=== PATIENT | male | born 1945 | race Caucasian/White ===

== ENCOUNTER 2018-07-08 09:55 | Day surgery (SDC) | payer MEDICARE ==
[2018-07-07 13:50] LABS: BASOPHILS % (AUTO) 0.7 % (0-1); EOSINOPHILS # (AUTO) 0.1 X10'3 (0-0.9); EOSINOPHILS % (AUTO) 1.5 % (0-6); HEMATOCRIT 44.5 % (42.0-52.0); HEMOGLOBIN 15.1 g/dl (14.0-17.9); LYMPHOCYTES # (AUTO) 1.6 X10'3 (1.1-4.8); LYMPHOCYTES % (AUTO) 29.2 % (21-51); MEAN CORPUSCULAR HEMOGLOBIN 32.6 PG (27.0-31.0); MEAN CORPUSCULAR HGB CONC 33.9 g/dL (33.0-36.5); MEAN CORPUSCULAR VOLUME 96.2 FL (78-98); MEAN PLATELET VOLUME 8.2 FL (7.4-10.4); MONOCYTES # (AUTO) 0.6 X10'3 (0-0.9); MONOCYTES % (AUTO) 10.9 % (2-12); NEUTROPHILS # (AUTO) 3.3 X10'3 (1.8-7.7); NEUTROPHILS % (AUTO) 57.7 % (42-75); PLATELET COUNT 180 X10'3 (140-440); RED BLOOD COUNT 4.63 X10'6 (4.70-6.10); RED CELL DISTRIBUTION WIDTH 13.3 % (11.5-14.5); WHITE BLOOD COUNT 5.7 X10'3 (4.5-11.0)
[2018-07-07 13:57] LABS: ALBUMIN 3.7 G/DL (3.4-5.0); ANION GAP 8 (8-16); BLOOD UREA NITROGEN 17 MG/DL (7-18); BUN/CREATININE RATIO 15.5 (5.4-32.0); CALCIUM 8.9 MG/DL (8.5-10.1); CHLORIDE 106 MMOL/L (99-107); GLUCOSE 89 MG/DL (70-104); POTASSIUM 4.3 MMOL/L (3.5-5.1); SODIUM 141 MMOL/L (135-145); TOTAL CARBON DIOXIDE 26.9 MMOL/L (24-32); eGFR 66 ML/MIN
[2018-07-07 14:02] LABS: INR 1.2 INR; PROTHROMBIN TIME 12.1 SECONDS (9.0-12.0)
[~2018-07-08] VITALS: Ht 180.3 cm; Wt 108.0 kg
[2018-07-08] VITALS (15 sets, daily range): BP systolic 114–136; BP diastolic 68–82
[~2018-07-08 09:55] MED LIST: AMLO5TAB4 PO; APIX5TAB3 PO; ASPI-611 PO; ATOR10TA PO; CHOL2000 PO; FLAX100019 PO; MULT-1085 PO; OMEG1CAP13 PO; SOTA80TA73 PO; TERA2CAP4 PO
[2018-07-08] MEDS ORDERED: diphenhydrAMINE 25mg capsule PO ONE (10:10)
[2018-07-08] MEDS ORDERED: MIDAZolam 5mg/ml 2ml vial IV ONE (10:10)
[2018-07-08] MEDS ORDERED: normal saline 1000ml 1,000 ML IV SCH (10:10)
[2018-07-08] MEDS ORDERED: LORazepam 0.5 MG tablet PO ONE (10:10)
[2018-07-08] MEDS ORDERED: morphine 10mg/ml inj. IV ONE (10:10)
[2018-07-08] MEDS ORDERED: SOTA80TA73 PO (10:26)
[2018-07-08] MEDS ORDERED: AMLO5TAB4 PO (10:26)
[2018-07-08] MEDS ORDERED: DABI150C PO (10:29)
== END 2018-07-08 13:05 | disposition home or self-care (01) ==
LOC: SSTAY O 09:55 → EDSTATUS 12:30 → SSTAY O 13:05
PROVIDERS: ATTEND Internal Medicine Cardiovascular Disease
DX: I48.91 Unspecified atrial fibrillation (principal)
CPT/HCPCS: 36415; 80048; 85025; 85610; 93005; 93312; 93325; J2250; J2270; J7030

== ENCOUNTER 2023-12-14 18:02 | Inpatient (IN) | payer MEDICARE ==
[~2023-12-14] VITALS: Ht 177.8 cm; Wt 95.8 kg
[~2023-12-14 18:02] MED LIST changes: -APIX5TAB3 PO; -ASPI-611 PO; -ATOR10TA PO; +DABI150C PO; +OMEG-5 PO; -OMEG1CAP13 PO
[2023-12-14 18:13] VITALS: BP 126/73; PULSE 80; RESP 18; TEMP 97.8; O2SAT 99
[2023-12-14] MEDS ORDERED: RIVA20TA PO ×2 (19:19→21:51)
[2023-12-14] MEDS ORDERED: MAGN250T11 PO ×2 (19:19→22:08)
[2023-12-14] MEDS ORDERED: POTA99CA PO (19:19)
[2023-12-14] MEDS ORDERED: LOVA40TA2 PO (19:19)
[2023-12-14] MEDS ORDERED: FURO-150 PO ×3 (19:19→22:04)
[2023-12-14] MEDS: pneumococcal 23-VAL P-sac vacc 25 mcg/0.5ml vial IMVAC ONE (20:00)
[2023-12-14] MEDS ORDERED: magnesium Cl slow-release 64mg tablet PO PRN (21:50)
[2023-12-14] MEDS ORDERED: acetaminophen 325mg tablet PO PRN (21:50)
[2023-12-14] MEDS ORDERED: mag hydrox/Alum hydrox/simeth 30ml oral suspension PO PRN (21:50)
[2023-12-14] MEDS ORDERED: potassium Cl 20 mEq SR tablet PO PRN ×2 (21:50)
[2023-12-14] MEDS ORDERED: potassium Cl 40MEQ/1/2NS 520ml 520 ML IV PRN (21:50)
[2023-12-14] MEDS ORDERED: magnesium sulf-water 2g/50mL 50 ML IV PRN (21:50)
[2023-12-14] MEDS ORDERED: magnesium sulf-water 4G/100mL 100 ML IV PRN (21:50)
[2023-12-14] MEDS ORDERED: ondansetron/PF 4mg/2ml inj IV PRN (21:50)
[2023-12-14] MEDS ORDERED: POTA20PA40 PO (21:51)
[2023-12-14] MEDS ORDERED: LOVA20TA2 PO (21:51)
[2023-12-14] MEDS ORDERED: MAGN250C (21:51)
[2023-12-14 22:00] VITALS: BP 108/62; PULSE 76; RESP 16; TEMP 97.9; O2SAT 98
[2023-12-14] MEDS ORDERED: LISI20TA28 PO (22:24)
[2023-12-14] MEDS: furosemide 40mg/4ml inj IV SCH (22:48)
[2023-12-14 23:27] LABS: APTT 32 SECONDS (22-32); INR 1.5 INR; PROTHROMBIN TIME 15.5 SECONDS (9.0-12.0)
[2023-12-14 23:37] LABS: PRO BRAIN NATRIURETIC PEPTIDE 3918 PG/ML (0-450)
[2023-12-15] VITALS (8 sets, daily range): BP systolic 95–117; BP diastolic 57–69; PULSE 73–89; RESP 12–17; TEMP 97.7–99.3; O2SAT 95–98
[2023-12-15 02:34] LABS: BILIRUBIN,URINE NEGATIVE (Neg); CLARITY,URINE CLEAR (Clear); COLOR,URINE STRAW (Yellow); GLUCOSE, URINE NEGATIVE (Neg); KETONES,URINE NEGATIVE (Neg); LEUKOCYTE ESTERASE ,URINE NEGATIVE (Neg); NITRITES, URINE NEGATIVE (Neg); OCCULT BLOOD,URINE NEGATIVE (Neg); PROTEIN,URINE NEGATIVE (Neg); UROBILINOGEN,URINE 0.2 E.U/dL (0.2-1.0)
[2023-12-15 02:36] LABS: UA COLLECTION TYPE NON-SPECIFIED
[2023-12-15 06:29] LABS: BASOPHILS % (AUTO) 0.7 % (0-1); EOSINOPHILS # (AUTO) 0.1 X10'3 (0-0.9); EOSINOPHILS % (AUTO) 1.9 % (0-6); HEMATOCRIT 38.2 % (42.0-52.0); HEMOGLOBIN 12.8 g/dl (14.0-17.9); LYMPHOCYTES # (AUTO) 0.9 X10'3 (1.1-4.8); MEAN CORPUSCULAR HGB CONC 33.5 g/dL (33.0-36.5); MEAN CORPUSCULAR VOLUME 98.3 FL (78-98); MEAN PLATELET VOLUME 8.3 FL (7.4-10.4); MONOCYTES # (AUTO) 0.9 X10'3 (0-0.9); MONOCYTES % (AUTO) 14.8 % (2-12); NEUTROPHILS # (AUTO) 4.2 X10'3 (1.8-7.7); NEUTROPHILS % (AUTO) 67.6 % (42-75); PLATELET COUNT 194 X10'3 (140-440); RED BLOOD COUNT 3.89 X10'6 (4.70-6.10); RED CELL DISTRIBUTION WIDTH 15.6 % (11.5-14.5); WHITE BLOOD COUNT 6.3 X10'3 (4.5-11.0)
[2023-12-15 06:31] LABS: ALBUMIN 3.1 G/DL (3.4-5.0); ANION GAP 8 (8-16); BLOOD UREA NITROGEN 21 MG/DL (7-18); BUN/CREATININE RATIO 16.8 (10.0-20.0); CHLORIDE 102 MMOL/L (99-107); CHOL/HDL RATIO 2.8 (0.00-4.99); CHOLESTEROL 111 MG/DL (0-200); CREATININE 1.25 MG/DL (0.60-1.10); GLUCOSE 88 MG/DL (70-104); HDL CHOLESTEROL 39 MG/DL (35-60); LDL CHOLESTEROL 62 MG/DL (50-100); MAGNESIUM 2.2 MG/DL (1.5-2.4); POTASSIUM 4.1 MMOL/L (3.5-5.1); SODIUM 138 MMOL/L (135-145); TRIGLYCERIDES 54 MG/DL (20-135); eCRCL 50 ML/MIN; eGFR 56 ML/MIN
[2023-12-15] MEDS: heparin, porcine 5000 units/ml vial SQ SCH (08:00)
[2023-12-15] MEDS ORDERED: atorvastatin 10mg tablet PO SCH (08:00)
[2023-12-15] MEDS ORDERED: sotalol 80mg tablet PO SCH (08:00)
[2023-12-15] MEDS: K and/or MAG REPLACEMENT MC SCH (08:00)
[2023-12-15] MEDS: docusate sod 100mg capsule PO SCH (08:01)
[2023-12-15] MEDS: atorvastatin 20mg tablet PO SCH (08:01)
[2023-12-15] MEDS: lisinopril 20mg tablet PO SCH (08:02)
[2023-12-15 10:26] LABS: PRO BRAIN NATRIURETIC PEPTIDE 4562 PG/ML (0-450)
[2023-12-15] MEDS: acetylcysteine 200 MG/ml 4ml vial PO SCH (11:03)
[2023-12-15] MEDS: sodium bicarbonate 1meq/ml inj 150 ML in sodium chloride 0.45% 1,000 ML IV SCH (11:14)
[2023-12-15] MEDS ORDERED: verapamil 2.5 mg/ml inj IV ONE (11:45)
[2023-12-15] MEDS ORDERED: LIDOcaine 1% (10mg/ml) 2ml vial ONE (11:45)
[2023-12-15] MEDS ORDERED: heparin 1,000unit/ml 10ml vial 0 ML ONE (11:46)
[2023-12-15] MEDS ORDERED: iohexol 350MG/ML 100ml bottle IV ONE (11:46)
[2023-12-15] MEDS ORDERED: heparin 1,000 UNITS/NS 500ml 0 ML ONE (11:46)
[2023-12-15] MEDS ORDERED: nitroGLYCERIN 500mcg/5mL D5W 0 ML IV ONE (11:46)
[2023-12-15] MEDS ORDERED: iohexol 350 MG/ML 50ML vial IV ONE (11:46)
[2023-12-15] MEDS ORDERED: midazolam 1 mg/ML 2ml injection ONE (11:46)
[2023-12-15] MEDS ORDERED: fentaNYL/PF 50MCG/1 ML 2ML syringe ONE (11:46)
[2023-12-15] MEDS: sotalol HCl 40mg (1/2 tablet) PO SCH (19:26)
[2023-12-16] VITALS (16 sets, daily range): BP systolic 93–130; BP diastolic 55–70; PULSE 70–87; RESP 12–70; TEMP 97.3–98.9; O2SAT 93–98
[2023-12-16 07:25] LABS: ANION GAP 8 (8-16); BLOOD UREA NITROGEN 24 MG/DL (7-18); BUN/CREATININE RATIO 18.9 (10.0-20.0); CALCIUM 8.9 MG/DL (8.5-10.1); CHLORIDE 102 MMOL/L (99-107); CREATININE 1.27 MG/DL (0.60-1.10); GLUCOSE 94 MG/DL (70-104); MAGNESIUM 2.2 MG/DL (1.5-2.4); POTASSIUM 3.8 MMOL/L (3.5-5.1); PRO BRAIN NATRIURETIC PEPTIDE 3774 PG/ML (0-450); SODIUM 140 MMOL/L (135-145); TOTAL CARBON DIOXIDE 29.8 MMOL/L (24-32); eCRCL 50 ML/MIN; eGFR 55 ML/MIN
[2023-12-16] MEDS: lisinopril 10 MG tablet PO SCH (08:00)
[2023-12-16] MEDS ORDERED: midazolam 1 mg/ML 2ml injection ONE (08:25)
[2023-12-16] MEDS ORDERED: fentaNYL/PF 50MCG/1 ML 2ML syringe ONE (08:25)
[2023-12-16] MEDS ORDERED: verapamil 2.5 mg/ml inj IV ONE (08:26)
[2023-12-16] MEDS ORDERED: iohexol 350 MG/ML 50ML vial IV ONE ×2 (08:26→10:49)
[2023-12-16] MEDS ORDERED: iohexol 350MG/ML 100ml bottle IV ONE ×3 (08:26→10:49)
[2023-12-16] MEDS ORDERED: heparin 1,000unit/ml 10ml vial 10 ML ONE (08:26)
[2023-12-16] MEDS ORDERED: LIDOcaine 1% (10mg/ml) 2ml vial ONE (08:26)
[2023-12-16] MEDS ORDERED: nitroGLYCERIN 500mcg/5mL D5W 5 ML IV ONE (08:26)
[2023-12-16] MEDS ORDERED: heparin 25,000 UNIT/250ml bag 250 ML IV ONE (10:13)
[2023-12-16] MEDS ORDERED: clopidogrel 300mg tablet ONE (10:59)
[2023-12-16] MEDS ORDERED: aspirin 81mg tab.chew ONE (11:20)
[2023-12-16 11:46] LABS: HEMATOCRIT 36.2 % (43.5-53.7); HEMOGLOBIN 12.3 G/DL (12.5-16.3); RED BLOOD COUNT 3.73 X10'6 (4.30-5.90); WHITE BLOOD COUNT 6.3 X10'3 (4.5-11.0)
[2023-12-16 11:47] LABS: BASOPHILS # (AUTO) 0.1 X10'3 (0-1); BASOPHILS % 1 % (0-2); EOSINOPHILS # (AUTO) 0.1 X10'3 (0-0.9); EOSINOPHILS % (AUTO) 2 % (0-5); LYMPHOCYTES # (AUTO) 0.8 X10'3 (0.6-4.1); LYMPHOCYTES % 13 % (24-44); MEAN CORPUSCULAR HGB CONC 33.9 % (32-36); MEAN CORPUSCULAR VOLUME 97.1 FL (81-97); MONOCYTES # (AUTO) 0.8 X10'3 (0-0.9); MONOCYTES % 13 % (0-12); NEUTROPHILS # (AUTO) 4.5 X10'3 (>=1.4); PLATELET COUNT 174 X10'3 (130-400); RED CELL DISTRIBUTION WIDTH 15.7 % (11-16); SEGMENTED NEUTROPHILS % 71 % (36-66)
[2023-12-16 12:53] LABS: ISTAT HGB ART 12.2 g/dl (14.0-17.9); ISTAT Hct ART 36 %PCV (42-52); ISTAT O2 SATURATION ARTERIAL 95 % (95-98); ISTAT SOURCE ART
[2023-12-16] MEDS: normal saline 1000ml 1,000 ML IV SCH (16:36)
[2023-12-16] MEDS: furosemide 40mg/4ml inj IV SCH (20:28)
[2023-12-16] MEDS: magnesium hydroxide 30ml (MOM) UD suspension PO PRN (20:42)
[2023-12-17 02:00] VITALS: BP 99/51; PULSE 77; RESP 16; TEMP 97.8; O2SAT 97
[2023-12-17 05:53] LABS: BASOPHILS % (AUTO) 0.9 % (0-1); EOSINOPHILS # (AUTO) 0.1 X10'3 (0-0.9); EOSINOPHILS % (AUTO) 1.9 % (0-6); HEMATOCRIT 37.9 % (42.0-52.0); HEMOGLOBIN 12.3 g/dl (14.0-17.9); LYMPHOCYTES # (AUTO) 0.8 X10'3 (1.1-4.8); LYMPHOCYTES % (AUTO) 14.2 % (21-51); MEAN CORPUSCULAR HEMOGLOBIN 32.3 PG (27.0-31.0); MEAN CORPUSCULAR HGB CONC 32.6 g/dL (33.0-36.5); MEAN CORPUSCULAR VOLUME 99.2 FL (78-98); MONOCYTES # (AUTO) 0.7 X10'3 (0-0.9); MONOCYTES % (AUTO) 13.1 % (2-12); NEUTROPHILS % (AUTO) 69.9 % (42-75); PLATELET COUNT 156 X10'3 (140-440); RED BLOOD COUNT 3.82 X10'6 (4.70-6.10); RED CELL DISTRIBUTION WIDTH 15.7 % (11.5-14.5); WHITE BLOOD COUNT 5.7 X10'3 (4.5-11.0)
[2023-12-17 06:00] VITALS: BP 105/64; PULSE 75; RESP 14; TEMP 98.1; O2SAT 96
[2023-12-17 06:07] LABS: ALBUMIN 2.9 G/DL (3.4-5.0); ANION GAP 5 (8-16); BLOOD UREA NITROGEN 18 MG/DL (7-18); BUN/CREATININE RATIO 15.8 (10.0-20.0); CALCIUM 8.6 MG/DL (8.5-10.1); CHLORIDE 105 MMOL/L (99-107); CREATININE 1.14 MG/DL (0.60-1.10); GLUCOSE 85 MG/DL (70-104); MAGNESIUM 2.3 MG/DL (1.5-2.4); POTASSIUM 4.5 MMOL/L (3.5-5.1); SODIUM 139 MMOL/L (135-145); TOTAL CARBON DIOXIDE 28.6 MMOL/L (24-32); eCRCL 55 ML/MIN; eGFR 62 ML/MIN
[2023-12-17 06:36] LABS: ISTAT HGB MIX 12.2 g/dl (14.0-17.9); ISTAT Hct MIX 36 %PCV (42-52); ISTAT O2 SATURATION MIX VENOUS 67 % (60-80); ISTAT SOURCE VEN
[2023-12-17] MEDS ORDERED: IODIXANOL 320 MG/ML INFUS..BTL 100ML IV ONE (07:05)
[2023-12-17 08:00] VITALS: RESP 14
[2023-12-17] MEDS: rivaroxaban 20mg tablet PO SCH (08:00)
[2023-12-17] MEDS: aspirin 81mg, enteric-coated 1 TAB TABLET.DR PO SCH (08:20)
[2023-12-17] MEDS: clopidogrel 75mg tablet PO SCH (09:28)
[2023-12-17] MEDS ORDERED: metoprolol tartrate 1mg/ml inj IV PRN (10:00)
[2023-12-17 11:00] VITALS: BP 115/67; PULSE 88; RESP 14; TEMP 97.2; O2SAT 97
[2023-12-17] MEDS ORDERED: SOTA80TA73 PO (12:44)
[2023-12-17] MEDS ORDERED: EMPA10TA PO (12:44)
[2023-12-17] MEDS ORDERED: LISI10TA27 PO (12:44)
[2023-12-17] MEDS ORDERED: ASPI-1071 PO (12:44)
[2023-12-17] MEDS ORDERED: ATOR20TA66 PO (12:44)
[2023-12-17] MEDS ORDERED: CLOP75TA34 PO (12:44)
[2023-12-17] MEDS ORDERED: FURO-150 PO (12:44)
[2023-12-17] MEDS: EMPAGLIFLOZIN 10 MG TABLET PO SCH (12:53)
== END 2023-12-17 14:58 | disposition home or self-care (01) | DRG 321 ==
LOC: UNDOADMIN 18:02 → PCU 3S 18:02
PROVIDERS: ADMIT Internal Medicine; ATTEND Internal Medicine
PROC: 027135Z Dilation of Coronary Artery, Two Arteries with Two Drug-eluting Intraluminal Devices, Percutaneous Approach (ICD-10-PCS; principal; 2023-12-16)
PROC: 4A023N8 Measurement of Cardiac Sampling and Pressure, Bilateral, Percutaneous Approach (ICD-10-PCS; 2023-12-16)
PROC: B2161ZZ Fluoroscopy of Right and Left Heart using Low Osmolar Contrast (ICD-10-PCS; 2023-12-16)
PROC: B2111ZZ Fluoroscopy of Multiple Coronary Arteries using Low Osmolar Contrast (ICD-10-PCS; 2023-12-16)
PROC: B3101ZZ Fluoroscopy of Thoracic Aorta using Low Osmolar Contrast (ICD-10-PCS; 2023-12-16)
PROC: B2151ZZ Fluoroscopy of Left Heart using Low Osmolar Contrast (ICD-10-PCS; 2023-12-16)
PROC: 4A033BC Measurement of Arterial Pressure, Coronary, Percutaneous Approach (ICD-10-PCS; 2023-12-16)
PROC: 4A033BC Measurement of Arterial Pressure, Coronary, Percutaneous Approach (ICD-10-PCS; 2023-12-16)
DX: I25.10 Atherosclerotic heart disease of native coronary artery without angina pectoris (principal); I50.23 Acute on chronic systolic (congestive) heart failure; J96.01 Acute respiratory failure with hypoxia; I13.0 Hypertensive heart and chronic kidney disease with heart failure and stage 1 through stage 4 chronic kidney disease, or unspecified chronic kidney disease; I42.9 Cardiomyopathy, unspecified; I35.0 Nonrheumatic aortic (valve) stenosis; E78.5 Hyperlipidemia, unspecified; I48.0 Paroxysmal atrial fibrillation; I49.5 Sick sinus syndrome; N18.9 Chronic kidney disease, unspecified; N40.0 Benign prostatic hyperplasia without lower urinary tract symptoms; G47.30 Sleep apnea, unspecified; Z95.0 Presence of cardiac pacemaker; Z87.891 Personal history of nicotine dependence; Z82.3 Family history of stroke; Z86.718 Personal history of other venous thrombosis and embolism
CPT/HCPCS: 93460; 93567; 99285; C9600; C9601; 36415; 71045; 71275; 74174; 75572; 76937; 80048; 80061; 81003; 82803; 83735; 83880; 84484; 85014; 85025; 85347; 85610; 85730; 87081; 90732; 93005; 97116; 97161; 97530; 99152; 99153; A6258; C1725; C1751; C1769; C1874; C1894; G0378; J1644; J1940; J2250; J3010; J3490; J7030; Q9967

== ENCOUNTER 2023-12-26 10:25 | Outpatient (CLI) | payer MEDICARE ==
[~2023-12-26] VITALS: Ht 180.3 cm; Wt 94.0 kg
[~2023-12-26 10:25] MED LIST changes: -AMLO5TAB4 PO; +ASPI-1071 PO; +ATOR20TA66 PO; +CLOP75TA34 PO; -DABI150C PO; +EMPA10TA PO; +FURO-150 PO; +LISI10TA27 PO; +MAGN250T11 PO; -OMEG-5 PO; +POTA20PA40 PO; +RIVA20TA PO; -TERA2CAP4 PO
[2023-12-26 11:14] VITALS: BP 117/72; PULSE 93; RESP 16; TEMP 96.3; O2SAT 93
== END 2023-12-26 23:59 | disposition home or self-care (01) ==
LOC: TAVR 10:25
PROVIDERS: ATTEND Internal Medicine Cardiovascular Disease
DX: I35.0 Nonrheumatic aortic (valve) stenosis (principal); R06.02 Shortness of breath; I65.29 Occlusion and stenosis of unspecified carotid artery

== ENCOUNTER 2024-03-22 20:09 | Inpatient (IN) | payer MEDICARE ==
[~2024-03-22] VITALS: Ht 177.8 cm; Wt 93.0 kg
[~2024-03-22 20:09] MED LIST changes: -ASPI-1071 PO; +ATOR20TA PO; -ATOR20TA66 PO; -EMPA10TA PO
[2024-03-22] MEDS ORDERED: AMLO5TAB PO (20:58)
[2024-03-22 21:06] LABS: ALBUMIN 3.5 G/DL (3.4-5.0); ANION GAP 11 (8-16); BLOOD UREA NITROGEN 34 MG/DL (7-18); BUN/CREATININE RATIO 22.7 (10.0-20.0); CALCIUM 8.8 MG/DL (8.5-10.1); CHLORIDE 105 MMOL/L (99-107); GLUCOSE 121 MG/DL (70-104); POTASSIUM 4.5 MMOL/L (3.5-5.1); SODIUM 140 MMOL/L (135-145); TOTAL CARBON DIOXIDE 24.4 MMOL/L (24-32); eGFR 45 ML/MIN
[2024-03-22 21:13] LABS: BASOPHILS # (AUTO) 0.1 X10'3 (0-0.2); EOSINOPHILS # (AUTO) 0.2 X10'3 (0-0.9); EOSINOPHILS % (AUTO) 1.7 % (0-6); HEMATOCRIT 34.3 % (42.0-52.0); HEMOGLOBIN 11.4 g/dl (14.0-17.9); LYMPHOCYTES # (AUTO) 1.2 X10'3 (1.1-4.8); LYMPHOCYTES % (AUTO) 12.5 % (21-51); MEAN CORPUSCULAR HEMOGLOBIN 31.9 PG (27.0-31.0); MEAN CORPUSCULAR HGB CONC 33.2 g/dL (33.0-36.5); MEAN PLATELET VOLUME 8.2 FL (7.4-10.4); MONOCYTES # (AUTO) 0.8 X10'3 (0-0.9); MONOCYTES % (AUTO) 9.2 % (2-12); NEUTROPHILS % (AUTO) 75.6 % (42-75); PLATELET COUNT 162 X10'3 (140-440); RED BLOOD COUNT 3.57 X10'6 (4.70-6.10); WHITE BLOOD COUNT 9.3 X10'3 (4.5-11.0)
[2024-03-22] MEDS: ondansetron/PF 4mg/2ml inj IV ONE (21:15)
[2024-03-22] MEDS: morphine 4 MG/ML inj SYRINge IV ONE (21:18)
[2024-03-22] MEDS ORDERED: magnesium sulf-water 2g/50mL 50 ML IV PRN (21:35)
[2024-03-22] MEDS ORDERED: HYDROcodone/acetaminophen 5mg/325mg tablet PO PRN (21:35)
[2024-03-22] MEDS ORDERED: magnesium Cl slow-release 64mg tablet PO PRN (21:35)
[2024-03-22] MEDS ORDERED: potassium Cl 20 mEq SR tablet PO PRN ×2 (21:35)
[2024-03-22] MEDS ORDERED: ondansetron/PF 4mg/2ml inj IV PRN (21:35)
[2024-03-22] MEDS ORDERED: potassium Cl 40MEQ/1/2NS 520ml 520 ML IV PRN (21:35)
[2024-03-22] MEDS ORDERED: acetaminophen 325mg tablet PO PRN (21:35)
[2024-03-22] MEDS ORDERED: magnesium sulf-water 4G/100mL 100 ML IV PRN (21:35)
[2024-03-22] MEDS ORDERED: iohexol 350MG/ML 100ml bottle IV ONE (22:09)
[2024-03-22] MEDS: normal saline 500ml IV soln 500 ML IV SCH (22:25)
[2024-03-23 03:52] LABS: BASOPHILS # (AUTO) 0.1 X10'3 (0-0.2); BASOPHILS % (AUTO) 0.8 % (0-1); EOSINOPHILS % (AUTO) 0.1 % (0-6); HEMATOCRIT 33.4 % (42.0-52.0); HEMOGLOBIN 10.8 g/dl (14.0-17.9); LYMPHOCYTES # (AUTO) 0.7 X10'3 (1.1-4.8); LYMPHOCYTES % (AUTO) 4.9 % (21-51); MEAN CORPUSCULAR HEMOGLOBIN 31.5 PG (27.0-31.0); MEAN CORPUSCULAR HGB CONC 32.3 g/dL (33.0-36.5); MEAN CORPUSCULAR VOLUME 97.6 FL (78-98); MEAN PLATELET VOLUME 8.3 FL (7.4-10.4); MONOCYTES % (AUTO) 7.2 % (2-12); PLATELET COUNT 173 X10'3 (140-440); RED BLOOD COUNT 3.42 X10'6 (4.70-6.10); RED CELL DISTRIBUTION WIDTH 15.6 % (11.5-14.5); WHITE BLOOD COUNT 13.8 X10'3 (4.5-11.0)
[2024-03-23 04:00] LABS: ALBUMIN 3.5 G/DL (3.4-5.0); ANION GAP 8 (8-16); BLOOD UREA NITROGEN 36 MG/DL (7-18); BUN/CREATININE RATIO 21.8 (10.0-20.0); CALCIUM 8.6 MG/DL (8.5-10.1); CHLORIDE 104 MMOL/L (99-107); CREATININE 1.65 MG/DL (0.60-1.10); GLUCOSE 123 MG/DL (70-104); MAGNESIUM 2.4 MG/DL (1.5-2.4); POTASSIUM 4.9 MMOL/L (3.5-5.1); SODIUM 138 MMOL/L (135-145); TOTAL CARBON DIOXIDE 26.4 MMOL/L (24-32); eCRCL 37 ML/MIN; eGFR 40 ML/MIN
[2024-03-23] MEDS: normal saline 1000ML IV soln IVB ONE (06:16)
[2024-03-23 08:00] VITALS: RESP 16
[2024-03-23] MEDS: lisinopril 10 MG tablet PO SCH (08:00)
[2024-03-23] MEDS: K and/or MAG REPLACEMENT MC SCH (08:00)
[2024-03-23] MEDS ORDERED: FLAXSEED 1000 MG PO SCH (08:00)
[2024-03-23 08:26] LABS: APTT 29 SECONDS (22-32); INR 1.6 INR; PROTHROMBIN TIME 16.1 SECONDS (9.0-12.0)
[2024-03-23 10:00] VITALS: BP 109/55; PULSE 70; RESP 15; TEMP 97.6; O2SAT 96
[2024-03-23] MEDS: atorvastatin 20mg tablet PO SCH (10:47)
[2024-03-23] MEDS: multivitamins, therapeutics tablet PO SCH (10:48)
[2024-03-23] MEDS: amLODIPine 5mg tablet PO SCH (10:48)
[2024-03-23] MEDS: sotalol HCl 40mg (1/2 tablet) PO SCH (10:48)
[2024-03-23] MEDS: docusate sod 100mg capsule PO SCH (10:49)
[2024-03-23] MEDS: furosemide 20MG tablet PO SCH (10:49)
[2024-03-23] MEDS: cholecalciferol (vitamin D3) 1,000 unit (25mcg) tablet PO SCH (10:49)
[2024-03-23] MEDS: clopidogrel 75mg tablet PO SCH (13:44)
[2024-03-23 14:32] LABS: HEMATOCRIT 27.8 % (42.0-52.0); HEMOGLOBIN 9.1 g/dl (14.0-17.9); MEAN CORPUSCULAR HEMOGLOBIN 32.6 PG (27.0-31.0); MEAN CORPUSCULAR HGB CONC 32.9 g/dL (33.0-36.5); MEAN CORPUSCULAR VOLUME 99.1 FL (78-98); MEAN PLATELET VOLUME 8.5 FL (7.4-10.4); PLATELET COUNT 168 X10'3 (140-440); RED CELL DISTRIBUTION WIDTH 16.1 % (11.5-14.5); WHITE BLOOD COUNT 14.2 X10'3 (4.5-11.0)
[2024-03-23] MEDS: normal saline 500ml IV soln 500 ML IV ONE (17:01)
[2024-03-23 18:00] VITALS: BP 96/46; PULSE 72; RESP 15; TEMP 97.7; O2SAT 100
[2024-03-23 18:17] LABS: HEMATOCRIT 25.7 % (42.0-52.0); HEMOGLOBIN 8.4 g/dl (14.0-17.9); MEAN CORPUSCULAR HEMOGLOBIN 32.2 PG (27.0-31.0); MEAN CORPUSCULAR HGB CONC 32.9 g/dL (33.0-36.5); MEAN CORPUSCULAR VOLUME 97.9 FL (78-98); MEAN PLATELET VOLUME 8.7 FL (7.4-10.4); PLATELET COUNT 158 X10'3 (140-440); RED BLOOD COUNT 2.62 X10'6 (4.70-6.10); RED CELL DISTRIBUTION WIDTH 16.1 % (11.5-14.5); WHITE BLOOD COUNT 12.5 X10'3 (4.5-11.0)
[2024-03-23 21:59] LABS: HEMATOCRIT 24.2 % (42.0-52.0); HEMOGLOBIN 7.8 g/dl (14.0-17.9); MEAN CORPUSCULAR HEMOGLOBIN 31.5 PG (27.0-31.0); MEAN CORPUSCULAR HGB CONC 32.3 g/dL (33.0-36.5); MEAN CORPUSCULAR VOLUME 97.4 FL (78-98); MEAN PLATELET VOLUME 8.4 FL (7.4-10.4); PLATELET COUNT 149 X10'3 (140-440); RED BLOOD COUNT 2.49 X10'6 (4.70-6.10); WHITE BLOOD COUNT 12.5 X10'3 (4.5-11.0)
[2024-03-23 22:00] VITALS: BP 82/42; PULSE 69; RESP 16; TEMP 96.8; O2SAT 97
[2024-03-23 22:13] LABS: % IRON SATURATION 18 % (11-46); IRON 40 UG/DL (53-167); TOTAL IRON BINDING CAPACITY 223 UG/DL (259-388)
[2024-03-23 22:46] VITALS: BP 93/46; PULSE 77
[2024-03-23 23:55] VITALS: BP 95/46; PULSE 77
[2024-03-24] VITALS (11 sets, daily range): BP systolic 89–101; BP diastolic 42–56; PULSE 70–83; RESP 14–18; TEMP 97.3–98.9; O2SAT 93–98
[2024-03-24 07:06] LABS: BASOPHILS # (AUTO) 0.1 X10'3 (0-0.2); BASOPHILS % (AUTO) 0.7 % (0-1); EOSINOPHILS # (AUTO) 0.1 X10'3 (0-0.9); EOSINOPHILS % (AUTO) 0.4 % (0-6); HEMATOCRIT 25.4 % (42.0-52.0); HEMOGLOBIN 8.5 g/dl (14.0-17.9); LYMPHOCYTES # (AUTO) 1.3 X10'3 (1.1-4.8); LYMPHOCYTES % (AUTO) 10.8 % (21-51); MEAN CORPUSCULAR HEMOGLOBIN 32.2 PG (27.0-31.0); MEAN CORPUSCULAR HGB CONC 33.6 g/dL (33.0-36.5); MEAN CORPUSCULAR VOLUME 95.9 FL (78-98); MEAN PLATELET VOLUME 8.3 FL (7.4-10.4); MONOCYTES # (AUTO) 1.3 X10'3 (0-0.9); MONOCYTES % (AUTO) 11.1 % (2-12); NEUTROPHILS # (AUTO) 9.2 X10'3 (1.8-7.7); PLATELET COUNT 130 X10'3 (140-440); RED BLOOD COUNT 2.64 X10'6 (4.70-6.10); RED CELL DISTRIBUTION WIDTH 16.2 % (11.5-14.5)
[2024-03-24 07:24] LABS: ALANINE AMINOTRANSFERASE 16 U/L (12-78); ALBUMIN 2.7 G/DL (3.4-5.0); ALBUMIN/GLOBULIN RATIO 0.9 (1.1-1.5); ALKALINE PHOSPHATASE 99 IU/L (46-116); ANION GAP 8 (8-16); ASPARTATE AMINO TRANSFERASE 25 U/L (10-37); BLOOD UREA NITROGEN 60 MG/DL (7-18); BUN/CREATININE RATIO 16.9 (10.0-20.0); CALCIUM 7.9 MG/DL (8.5-10.1); CHLORIDE 106 MMOL/L (99-107); CREATININE 3.54 MG/DL (0.60-1.10); GLUCOSE 107 MG/DL (70-104); MAGNESIUM 2.4 MG/DL (1.5-2.4); SODIUM 138 MMOL/L (135-145); TOTAL CARBON DIOXIDE 23.8 MMOL/L (24-32); TOTAL PROTEIN 5.7 G/DL (6.4-8.2); eCRCL 17 ML/MIN; eGFR 17 ML/MIN
[2024-03-24 09:10] LABS: HEMATOCRIT 25.9 % (42.0-52.0); HEMOGLOBIN 8.4 g/dl (14.0-17.9); MEAN CORPUSCULAR HEMOGLOBIN 30.9 PG (27.0-31.0); MEAN CORPUSCULAR HGB CONC 32.4 g/dL (33.0-36.5); MEAN CORPUSCULAR VOLUME 95.5 FL (78-98); MEAN PLATELET VOLUME 7.9 FL (7.4-10.4); PLATELET COUNT 127 X10'3 (140-440); RED BLOOD COUNT 2.71 X10'6 (4.70-6.10); RED CELL DISTRIBUTION WIDTH 16.5 % (11.5-14.5); WHITE BLOOD COUNT 12.4 X10'3 (4.5-11.0)
[2024-03-24 09:26] LABS: APTT 26 SECONDS (22-32); INR 1.4 INR
[2024-03-24 19:01] LABS: HEMATOCRIT 25.5 % (42.0-52.0); HEMOGLOBIN 8.2 g/dl (14.0-17.9); MEAN CORPUSCULAR HEMOGLOBIN 31.1 PG (27.0-31.0); MEAN CORPUSCULAR HGB CONC 32.3 g/dL (33.0-36.5); MEAN CORPUSCULAR VOLUME 96.2 FL (78-98); MEAN PLATELET VOLUME 8.3 FL (7.4-10.4); PLATELET COUNT 138 X10'3 (140-440); RED BLOOD COUNT 2.65 X10'6 (4.70-6.10); RED CELL DISTRIBUTION WIDTH 16.7 % (11.5-14.5); WHITE BLOOD COUNT 12.9 X10'3 (4.5-11.0)
[2024-03-24 19:13] LABS: OSMOLALITY 309 MOSM/K (280-300)
[2024-03-24 19:15] LABS: ALBUMIN 2.8 G/DL (3.4-5.0); ANION GAP 10 (8-16); BLOOD UREA NITROGEN 69 MG/DL (7-18); BUN/CREATININE RATIO 17.1 (10.0-20.0); CHLORIDE 104 MMOL/L (99-107); CREATININE 4.04 MG/DL (0.60-1.10); GLUCOSE 112 MG/DL (70-104); POTASSIUM 4.8 MMOL/L (3.5-5.1); SODIUM 138 MMOL/L (135-145); TOTAL CARBON DIOXIDE 23.9 MMOL/L (24-32); eCRCL 15 ML/MIN; eGFR 14 ML/MIN
[2024-03-24] MEDS: normal saline 500ml IV soln 500 ML IV ONE (20:05)
[2024-03-24 21:54] LABS: HEMATOCRIT 23.1 % (42.0-52.0); HEMOGLOBIN 7.7 g/dl (14.0-17.9); MEAN CORPUSCULAR HEMOGLOBIN 31.9 PG (27.0-31.0); MEAN CORPUSCULAR HGB CONC 33.3 g/dL (33.0-36.5); MEAN CORPUSCULAR VOLUME 95.7 FL (78-98); MEAN PLATELET VOLUME 8.3 FL (7.4-10.4); PLATELET COUNT 123 X10'3 (140-440); RED BLOOD COUNT 2.42 X10'6 (4.70-6.10); RED CELL DISTRIBUTION WIDTH 16.5 % (11.5-14.5); WHITE BLOOD COUNT 11.8 X10'3 (4.5-11.0)
[2024-03-25] VITALS (30 sets, daily range): BP systolic 98–125; BP diastolic 47–69; PULSE 16–89; RESP 13–20; TEMP 97.5–99.5; O2SAT 92–100
[2024-03-25 01:46] LABS: HEMATOCRIT 22.3 % (42.0-52.0); HEMOGLOBIN 7.3 g/dl (14.0-17.9); MEAN CORPUSCULAR HEMOGLOBIN 31.4 PG (27.0-31.0); MEAN CORPUSCULAR HGB CONC 32.8 g/dL (33.0-36.5); MEAN CORPUSCULAR VOLUME 95.9 FL (78-98); MEAN PLATELET VOLUME 7.9 FL (7.4-10.4); PLATELET COUNT 112 X10'3 (140-440); RED BLOOD COUNT 2.33 X10'6 (4.70-6.10); RED CELL DISTRIBUTION WIDTH 16.6 % (11.5-14.5); WHITE BLOOD COUNT 11.1 X10'3 (4.5-11.0)
[2024-03-25] MEDS: morphine 2 MG/ML inj. syringe IV ONE (07:30)
[2024-03-25 07:42] LABS: BASOPHILS # (AUTO) 0.1 X10'3 (0-0.2); BASOPHILS % (AUTO) 0.8 % (0-1); EOSINOPHILS # (AUTO) 0.2 X10'3 (0-0.9); EOSINOPHILS % (AUTO) 1.4 % (0-6); HEMATOCRIT 24.3 % (42.0-52.0); LYMPHOCYTES # (AUTO) 0.9 X10'3 (1.1-4.8); LYMPHOCYTES % (AUTO) 7.6 % (21-51); MEAN CORPUSCULAR HEMOGLOBIN 31.5 PG (27.0-31.0); MEAN CORPUSCULAR HGB CONC 32.9 g/dL (33.0-36.5); MEAN CORPUSCULAR VOLUME 95.7 FL (78-98); MEAN PLATELET VOLUME 7.7 FL (7.4-10.4); MONOCYTES # (AUTO) 1.2 X10'3 (0-0.9); MONOCYTES % (AUTO) 10.4 % (2-12); NEUTROPHILS # (AUTO) 9.1 X10'3 (1.8-7.7); NEUTROPHILS % (AUTO) 79.8 % (42-75); PLATELET COUNT 131 X10'3 (140-440); RED BLOOD COUNT 2.54 X10'6 (4.70-6.10); RED CELL DISTRIBUTION WIDTH 16.4 % (11.5-14.5); WHITE BLOOD COUNT 11.3 X10'3 (4.5-11.0)
[2024-03-25 07:52] LABS: APTT 24 SECONDS (22-32); INR 1.3 INR; PROTHROMBIN TIME 13.2 SECONDS (9.0-12.0)
[2024-03-25 08:20] LABS: ALANINE AMINOTRANSFERASE 19 U/L (12-78); ALBUMIN 2.8 G/DL (3.4-5.0); ALBUMIN/GLOBULIN RATIO 0.9 (1.1-1.5); ALKALINE PHOSPHATASE 109 IU/L (46-116); ANION GAP 11 (8-16); ASPARTATE AMINO TRANSFERASE 28 U/L (10-37); BILIRUBIN,TOTAL 0.7 MG/DL (0.1-1.0); BLOOD UREA NITROGEN 75 MG/DL (7-18); BUN/CREATININE RATIO 17.2 (10.0-20.0); CALCIUM 7.9 MG/DL (8.5-10.1); CHLORIDE 104 MMOL/L (99-107); CREATININE 4.35 MG/DL (0.60-1.10); GLUCOSE 105 MG/DL (70-104); MAGNESIUM 2.5 MG/DL (1.5-2.4); POTASSIUM 4.8 MMOL/L (3.5-5.1); SODIUM 137 MMOL/L (135-145); TOTAL CARBON DIOXIDE 22.2 MMOL/L (24-32); eCRCL 14 ML/MIN; eGFR 13 ML/MIN
[2024-03-25] MEDS: normal saline 1000ml 1,000 ML IV SCH (08:45)
[2024-03-25] MEDS: normal saline 1000ml 1,000 ML IV ONE (09:28)
[2024-03-25 10:02] LABS: HEMATOCRIT 23.6 % (42.0-52.0); HEMOGLOBIN 7.9 g/dl (14.0-17.9); MEAN CORPUSCULAR HGB CONC 33.3 g/dL (33.0-36.5); PLATELET COUNT 125 X10'3 (140-440); RED BLOOD COUNT 2.46 X10'6 (4.70-6.10); RED CELL DISTRIBUTION WIDTH 16.6 % (11.5-14.5); WHITE BLOOD COUNT 10.8 X10'3 (4.5-11.0)
[2024-03-25] MEDS: ceFAZolin/D5W- 1GM premix 50 ML IV SCH (11:05)
[2024-03-25 14:12] LABS: HEMATOCRIT 23.3 % (42.0-52.0); HEMOGLOBIN 7.7 g/dl (14.0-17.9); MEAN CORPUSCULAR HGB CONC 32.9 g/dL (33.0-36.5); MEAN CORPUSCULAR VOLUME 97.3 FL (78-98); MEAN PLATELET VOLUME 7.8 FL (7.4-10.4); PLATELET COUNT 119 X10'3 (140-440); RED CELL DISTRIBUTION WIDTH 16.3 % (11.5-14.5); WHITE BLOOD COUNT 10.5 X10'3 (4.5-11.0)
[2024-03-25] MEDS ORDERED: LidoCAINE 2% Topical Jelly 11mL syringe (UROJET) ONE (15:57)
[2024-03-25] MEDS ORDERED: iohexol 300 MG/1 ML 50ml polymer ONE (15:57)
[2024-03-25] MEDS ORDERED: sevoflurane 250ml liquid IH ONE (16:02)
[2024-03-25] MEDS ORDERED: proCHLORperazine 10 MG/2 ml inj IV PRN (16:05)
[2024-03-25] MEDS ORDERED: ondansetron/PF 4mg/2ml inj IV PRN (16:05)
[2024-03-25] MEDS: ringers solution, lacted 1,000 ML IV SCH (16:05)
[2024-03-25] MEDS ORDERED: meperidine/PF 25mg/ml syringe IV PRN ×3 (16:05)
[2024-03-25] MEDS ORDERED: labetalol 20mg/4ml (5mg/ml) syringe IV PRN (16:05)
[2024-03-25] MEDS ORDERED: morphine 2 MG/ML inj. syringe IV PRN (16:05)
[2024-03-25] MEDS ORDERED: morphine 4 MG/ML inj SYRINge IV PRN (16:05)
[2024-03-25] MEDS ORDERED: enalaprilat dihydrate 2.5mg/2ml vial IV PRN (16:05)
[2024-03-25] MEDS ORDERED: fentaNYL/PF 50MCG/1 ML 2ML syringe ONE (16:13)
[2024-03-25] MEDS ORDERED: midazolam 1 mg/ML 2ml injection ONE (16:13)
[2024-03-25] MEDS ORDERED: propofol inj 20 ML IV ONE (17:19)
[2024-03-25] MEDS ORDERED: albumin (Human) 5% 250ml 250 ML IV ONE (17:20)
[2024-03-26] VITALS (7 sets, daily range): BP systolic 99–129; BP diastolic 51–67; PULSE 70–91; RESP 13–19; TEMP 97.2–98; O2SAT 96–98
[2024-03-26 06:48] LABS: APTT 25 SECONDS (22-32); BASOPHILS % (AUTO) 0.2 % (0-1); EOSINOPHILS % (AUTO) 0 % (0-6); HEMATOCRIT 26.8 % (42.0-52.0); HEMOGLOBIN 9.2 g/dl (14.0-17.9); INR 1.2 INR; LYMPHOCYTES # (AUTO) 0.3 X10'3 (1.1-4.8); LYMPHOCYTES % (AUTO) 4.4 % (21-51); MEAN CORPUSCULAR HGB CONC 34.1 g/dL (33.0-36.5); MEAN CORPUSCULAR VOLUME 96.7 FL (78-98); MEAN PLATELET VOLUME 8.3 FL (7.4-10.4); MONOCYTES # (AUTO) 0.2 X10'3 (0-0.9); MONOCYTES % (AUTO) 2.9 % (2-12); NEUTROPHILS # (AUTO) 7.1 X10'3 (1.8-7.7); NEUTROPHILS % (AUTO) 92.5 % (42-75); PLATELET COUNT 104 X10'3 (140-440); PROTHROMBIN TIME 12.8 SECONDS (9.0-12.0); RED BLOOD COUNT 2.78 X10'6 (4.70-6.10); RED CELL DISTRIBUTION WIDTH 15.6 % (11.5-14.5); WHITE BLOOD COUNT 7.7 X10'3 (4.5-11.0)
[2024-03-26 06:52] LABS: ALANINE AMINOTRANSFERASE 13 U/L (12-78); ALBUMIN 2.8 G/DL (3.4-5.0); ALBUMIN/GLOBULIN RATIO 0.9 (1.1-1.5); ALKALINE PHOSPHATASE 106 IU/L (46-116); ANION GAP 11 (8-16); ASPARTATE AMINO TRANSFERASE 20 U/L (10-37); BILIRUBIN,TOTAL 0.9 MG/DL (0.1-1.0); BLOOD UREA NITROGEN 71 MG/DL (7-18); BUN/CREATININE RATIO 19.2 (10.0-20.0); CALCIUM 7.8 MG/DL (8.5-10.1); CHLORIDE 108 MMOL/L (99-107); GLUCOSE 121 MG/DL (70-104); MAGNESIUM 2.5 MG/DL (1.5-2.4); POTASSIUM 5.2 MMOL/L (3.5-5.1); SODIUM 140 MMOL/L (135-145); eCRCL 17 ML/MIN; eGFR 16 ML/MIN
[2024-03-26] MEDS: clopidogrel 75mg tablet PO ONE (10:19)
[2024-03-26] MEDS: sodium chloride 0.45% 1,000 ML IV SCH (13:10)
[2024-03-26 15:49] LABS: PRO BRAIN NATRIURETIC PEPTIDE 10040 PG/ML (0-450)
[2024-03-26 19:15] LABS: ANION GAP 8 (8-16); BLOOD UREA NITROGEN 81 MG/DL (7-18); BUN/CREATININE RATIO 20.2 (10.0-20.0); CALCIUM 7.9 MG/DL (8.5-10.1); CHLORIDE 105 MMOL/L (99-107); CREATININE 4.01 MG/DL (0.60-1.10); GLUCOSE 107 MG/DL (70-104); POTASSIUM 4.9 MMOL/L (3.5-5.1); SODIUM 136 MMOL/L (135-145); TOTAL CARBON DIOXIDE 22.9 MMOL/L (24-32); eCRCL 15 ML/MIN; eGFR 15 ML/MIN
[2024-03-26 22:21] LABS: BILIRUBIN,URINE NEGATIVE (Neg); CLARITY,URINE CLOUDY (Clear); GLUCOSE, URINE NEGATIVE (Neg); KETONES,URINE NEGATIVE (Neg); LEUKOCYTE ESTERASE ,URINE SMALL (Neg); NITRITES, URINE NEGATIVE (Neg); OCCULT BLOOD,URINE MODERATE (Neg); PH,URINE 5.5 (4.8-8.0); PROTEIN,URINE 100 mg/dl (Neg); UROBILINOGEN,URINE 0.2 E.U/dL (0.2-1.0)
[2024-03-26 22:33] LABS: BACTERIA,URINE FEW /HPF (Neg); COLOR,URINE AMBER (Yellow); RBC,URINE TNTC /HPF (0-2); SQUAMOUS EPITHELIAL CELL,UR FEW /LPF (FEW)
[2024-03-26 22:34] LABS: HYALINE CASTS 0-3 /LPF (NEGATIVE); MUCUS STRANDS FEW /LPF (Neg)
[2024-03-26 22:38] LABS: UA COLLECTION TYPE FOLEY CATH
[2024-03-26 22:41] LABS: TOTAL PROTEIN,URINE RANDOM 116.7 MG/DL; URINE AMPHETAMINE SCREEN NEGATIVE (Neg); URINE BARBITUATE SCREEN NEGATIVE (Neg); URINE BENZODIAZEPINES SCREEN POSITIVE (Neg); URINE CANNABINOID SCREEN NEGATIVE (Neg); URINE COCAINE SCREEN NEGATIVE (Neg); URINE METHADONE SCREEN NEGATIVE (Neg); URINE OPIATE SCREEN NEGATIVE (Neg); URINE PHENCYCLIDINE SCREEN NEGATIVE (Neg)
[2024-03-26 23:11] LABS: UA EOSINOPHILS NO EOS /HPF
[2024-03-27 06:00] VITALS: BP 111/66; PULSE 75; RESP 18; TEMP 98; O2SAT 96
[2024-03-27] MEDS: magnesium hydroxide 30ml (MOM) UD suspension PO PRN (06:46)
[2024-03-27] MEDS: normal saline 1000ml 1,000 ML IV SCH (06:47)
[2024-03-27 08:02] LABS: BASOPHILS % (AUTO) 0.4 % (0-1); EOSINOPHILS % (AUTO) 0.4 % (0-6); HEMOGLOBIN 8.6 g/dl (14.0-17.9); LYMPHOCYTES # (AUTO) 0.8 X10'3 (1.1-4.8); LYMPHOCYTES % (AUTO) 8.8 % (21-51); MEAN CORPUSCULAR HEMOGLOBIN 33.2 PG (27.0-31.0); MEAN CORPUSCULAR HGB CONC 34.2 g/dL (33.0-36.5); MEAN PLATELET VOLUME 8.7 FL (7.4-10.4); MONOCYTES % (AUTO) 10.7 % (2-12); NEUTROPHILS # (AUTO) 7.2 X10'3 (1.8-7.7); NEUTROPHILS % (AUTO) 79.7 % (42-75); PLATELET COUNT 99 X10'3 (140-440); RED BLOOD COUNT 2.58 X10'6 (4.70-6.10); RED CELL DISTRIBUTION WIDTH 15.8 % (11.5-14.5)
[2024-03-27 08:17] LABS: APTT 25 SECONDS (22-32); INR 1.3 INR; PROTHROMBIN TIME 13.2 SECONDS (9.0-12.0)
[2024-03-27 08:26] LABS: OSMOLALITY 304 MOSM/K (280-300)
[2024-03-27 08:31] LABS: ALANINE AMINOTRANSFERASE 14 U/L (12-78); ALBUMIN 2.8 G/DL (3.4-5.0); ALKALINE PHOSPHATASE 115 IU/L (46-116); ANION GAP 11 (8-16); ASPARTATE AMINO TRANSFERASE 24 U/L (10-37); BLOOD UREA NITROGEN 77 MG/DL (7-18); BUN/CREATININE RATIO 22.1 (10.0-20.0); CALCIUM 7.7 MG/DL (8.5-10.1); CHLORIDE 106 MMOL/L (99-107); CREATININE 3.49 MG/DL (0.60-1.10); GLUCOSE 90 MG/DL (70-104); MAGNESIUM 2.4 MG/DL (1.5-2.4); POTASSIUM 4.5 MMOL/L (3.5-5.1); SODIUM 137 MMOL/L (135-145); TOTAL PROTEIN 5.7 G/DL (6.4-8.2); eCRCL 18 ML/MIN; eGFR 17 ML/MIN
[2024-03-27 10:00] VITALS: BP 116/63; PULSE 75; RESP 16; TEMP 97.6; O2SAT 95
[2024-03-27] MEDS: clopidogrel 75mg tablet PO SCH (10:50)
[2024-03-27 16:50] VITALS: BP 111/66; PULSE 62
[2024-03-27 18:00] VITALS: BP 129/63; PULSE 71; RESP 16; TEMP 97.9; O2SAT 97
[2024-03-27 22:00] VITALS: BP_SYST 130; BP_SYST 132; BP_SYST 133; BP_DIAS 63; BP_DIAS 64; BP_DIAS 65; PULSE 73; PULSE 82; PULSE 83; RESP 8; TEMP 98.4; O2SAT 93
[2024-03-28 06:00] VITALS: BP 115/61; PULSE 77; RESP 16; TEMP 98.8; O2SAT 91
[2024-03-28 07:55] LABS: ALANINE AMINOTRANSFERASE 15 U/L (12-78); ALBUMIN 2.6 G/DL (3.4-5.0); ALBUMIN/GLOBULIN RATIO 0.9 (1.1-1.5); ALKALINE PHOSPHATASE 116 IU/L (46-116); ANION GAP 8 (8-16); ASPARTATE AMINO TRANSFERASE 17 U/L (10-37); BILIRUBIN,TOTAL 1.1 MG/DL (0.1-1.0); BLOOD UREA NITROGEN 66 MG/DL (7-18); BUN/CREATININE RATIO 24.1 (10.0-20.0); CALCIUM 7.6 MG/DL (8.5-10.1); CHLORIDE 107 MMOL/L (99-107); CREATININE 2.74 MG/DL (0.60-1.10); GLUCOSE 89 MG/DL (70-104); POTASSIUM 5.1 MMOL/L (3.5-5.1); SODIUM 137 MMOL/L (135-145); TOTAL CARBON DIOXIDE 22.2 MMOL/L (24-32); TOTAL PROTEIN 5.5 G/DL (6.4-8.2); eCRCL 23 ML/MIN; eGFR 23 ML/MIN
[2024-03-28 08:00] VITALS: BP_SYST 109; BP_SYST 117; BP_SYST 118; BP_DIAS 50; BP_DIAS 57; BP_DIAS 58; PULSE 79; PULSE 83
[2024-03-28 08:28] LABS: BASOPHILS # (AUTO) 0.1 X10'3 (0-0.2); BASOPHILS % (AUTO) 0.7 % (0-1); EOSINOPHILS # (AUTO) 0.1 X10'3 (0-0.9); EOSINOPHILS % (AUTO) 1.1 % (0-6); LYMPHOCYTES # (AUTO) 0.7 X10'3 (1.1-4.8); LYMPHOCYTES % (AUTO) 8.8 % (21-51); MEAN CORPUSCULAR HEMOGLOBIN 32.7 PG (27.0-31.0); MEAN CORPUSCULAR HGB CONC 33.5 g/dL (33.0-36.5); MEAN CORPUSCULAR VOLUME 97.5 FL (78-98); MEAN PLATELET VOLUME 8.7 FL (7.4-10.4); MONOCYTES # (AUTO) 1.2 X10'3 (0-0.9); MONOCYTES % (AUTO) 15.5 % (2-12); NEUTROPHILS # (AUTO) 5.5 X10'3 (1.8-7.7); NEUTROPHILS % (AUTO) 73.9 % (42-75); PLATELET COUNT 87 X10'3 (140-440); RED BLOOD COUNT 2.46 X10'6 (4.70-6.10); RED CELL DISTRIBUTION WIDTH 15.7 % (11.5-14.5); WHITE BLOOD COUNT 7.4 X10'3 (4.5-11.0)
[2024-03-28] MEDS: multivitamins, therapeutics tablet PO SCH (09:39)
[2024-03-28 10:00] VITALS: BP 116/60; PULSE 91; RESP 18; TEMP 98.2; O2SAT 95
[2024-03-28] MEDS ORDERED: cholecalciferol (vitamin D3) 400 unit (10mcg) tablet PO SCH (14:05)
[2024-03-28 15:04] LABS: HEMATOCRIT 25.9 % (42.0-52.0); HEMOGLOBIN 8.8 g/dl (14.0-17.9); MEAN CORPUSCULAR HEMOGLOBIN 33.4 PG (27.0-31.0); MEAN CORPUSCULAR VOLUME 98.1 FL (78-98); MEAN PLATELET VOLUME 8.6 FL (7.4-10.4); PLATELET COUNT 96 X10'3 (140-440); RED BLOOD COUNT 2.64 X10'6 (4.70-6.10); RED CELL DISTRIBUTION WIDTH 15.6 % (11.5-14.5); WHITE BLOOD COUNT 7.3 X10'3 (4.5-11.0)
[2024-03-28 18:00] VITALS: BP 123/70; PULSE 79; RESP 18; TEMP 97.8; O2SAT 91
[2024-03-28] MEDS: ferrous gluconate 324mg tablet PO SCH (19:00)
[2024-03-28 20:26] LABS: HEMATOCRIT 26.3 % (42.0-52.0); HEMOGLOBIN 8.8 g/dl (14.0-17.9); MEAN CORPUSCULAR HEMOGLOBIN 32.9 PG (27.0-31.0); MEAN CORPUSCULAR HGB CONC 33.5 g/dL (33.0-36.5); MEAN CORPUSCULAR VOLUME 98.2 FL (78-98); MEAN PLATELET VOLUME 8.4 FL (7.4-10.4); PLATELET COUNT 104 X10'3 (140-440); RED BLOOD COUNT 2.67 X10'6 (4.70-6.10); RED CELL DISTRIBUTION WIDTH 15.9 % (11.5-14.5); WHITE BLOOD COUNT 7.3 X10'3 (4.5-11.0)
[2024-03-28 22:00] VITALS: BP_SYST 109; BP_SYST 118; BP_SYST 120; BP_DIAS 53; BP_DIAS 57; BP_DIAS 63; PULSE 73; PULSE 74; PULSE 76; PULSE 81; RESP 18; TEMP 97.5; O2SAT 94
[2024-03-29 04:35] LABS: HEMOGLOBIN 8.1 g/dl (14.0-17.9); MEAN CORPUSCULAR HGB CONC 33.7 g/dL (33.0-36.5); MEAN CORPUSCULAR VOLUME 98.1 FL (78-98); MEAN PLATELET VOLUME 8.7 FL (7.4-10.4); PLATELET COUNT 88 X10'3 (140-440); RED BLOOD COUNT 2.45 X10'6 (4.70-6.10); WHITE BLOOD COUNT 6.7 X10'3 (4.5-11.0)
[2024-03-29 06:00] VITALS: BP 132/64; PULSE 70; RESP 18; TEMP 98.3; O2SAT 93
[2024-03-29] MEDS: aspirin 81mg, enteric-coated 1 TAB TABLET.DR PO SCH (08:00)
[2024-03-29 09:42] LABS: HEMATOCRIT 27.9 % (42.0-52.0); HEMOGLOBIN 9.4 g/dl (14.0-17.9); MEAN CORPUSCULAR HEMOGLOBIN 32.9 PG (27.0-31.0); MEAN CORPUSCULAR HGB CONC 33.7 g/dL (33.0-36.5); MEAN CORPUSCULAR VOLUME 97.7 FL (78-98); MEAN PLATELET VOLUME 8.5 FL (7.4-10.4); PLATELET COUNT 112 X10'3 (140-440); RED BLOOD COUNT 2.86 X10'6 (4.70-6.10); RED CELL DISTRIBUTION WIDTH 15.9 % (11.5-14.5); WHITE BLOOD COUNT 7.8 X10'3 (4.5-11.0)
[2024-03-29 09:45] LABS: ANION GAP 8 (8-16); BLOOD UREA NITROGEN 49 MG/DL (7-18); BUN/CREATININE RATIO 25.9 (10.0-20.0); CALCIUM 8.3 MG/DL (8.5-10.1); CHLORIDE 110 MMOL/L (99-107); CREATININE 1.89 MG/DL (0.60-1.10); GLUCOSE 107 MG/DL (70-104); SODIUM 139 MMOL/L (135-145); TOTAL CARBON DIOXIDE 20.7 MMOL/L (24-32); eCRCL 33 ML/MIN; eGFR 35 ML/MIN
[2024-03-29 10:00] VITALS: BP 138/65; PULSE 73; RESP 18; TEMP 98.7; O2SAT 94
[2024-03-29] MEDS ORDERED: RIVA15TA PO (12:25)
[2024-03-29] MEDS ORDERED: ASPI-1071 PO (12:25)
[2024-03-29] MEDS ORDERED: FERR324T3 PO (12:25)
[2024-03-29] MEDS ORDERED: FURO-150 PO (12:44)
== END 2024-03-29 15:19 | disposition home or self-care (01) | DRG 669 ==
LOC: ER 20:09 → ED HOLD 21:41 → ORTHO 4S 03-23 09:00
PROVIDERS: ADMIT Surgery; ATTEND Family Medicine
PROC: BW211ZZ Computerized Tomography (CT Scan) of Abdomen and Pelvis using Low Osmolar Contrast (ICD-10-PCS; 2024-03-22)
PROC: 30233N1 Transfusion of Nonautologous Red Blood Cells into Peripheral Vein, Percutaneous Approach (ICD-10-PCS; 2024-03-24)
PROC: 0TCB8ZZ Extirpation of Matter from Bladder, Via Natural or Artificial Opening Endoscopic (ICD-10-PCS; 2024-03-25)
PROC: BT141ZZ Fluoroscopy of Kidneys, Ureters and Bladder using Low Osmolar Contrast (ICD-10-PCS; 2024-03-25)
PROC: 0T5B8ZZ Destruction of Bladder, Via Natural or Artificial Opening Endoscopic (ICD-10-PCS; principal; 2024-03-25 16:02)
PROC: CT1 Nuclear Medicine, Urinary System, Planar Nuclear Medicine Imaging (ICD-10-PCS; 2024-03-26)
DX: R31.0 Gross hematuria (principal); D62 Acute posthemorrhagic anemia; D68.32 Hemorrhagic disorder due to extrinsic circulating anticoagulants; I13.0 Hypertensive heart and chronic kidney disease with heart failure and stage 1 through stage 4 chronic kidney disease, or unspecified chronic kidney disease; I50.22 Chronic systolic (congestive) heart failure; N17.0 Acute kidney failure with tubular necrosis; T45.515A Adverse effect of anticoagulants, initial encounter; Z66 Do not resuscitate; I48.0 Paroxysmal atrial fibrillation; I25.10 Atherosclerotic heart disease of native coronary artery without angina pectoris; E78.5 Hyperlipidemia, unspecified; J43.9 Emphysema, unspecified; G47.30 Sleep apnea, unspecified; K76.0 Fatty (change of) liver, not elsewhere classified; N18.31 Chronic kidney disease, stage 3a; N28.1 Cyst of kidney, acquired; E87.8 Other disorders of electrolyte and fluid balance, not elsewhere classified; E87.5 Hyperkalemia; N40.1 Benign prostatic hyperplasia with lower urinary tract symptoms; R33.8 Other retention of urine; I27.20 Pulmonary hypertension, unspecified; D69.6 Thrombocytopenia, unspecified; I49.5 Sick sinus syndrome; Y92.89 Other specified places as the place of occurrence of the external cause; Z95.2 Presence of prosthetic heart valve; Z82.3 Family history of stroke; Z79.01 Long term (current) use of anticoagulants; Z95.5 Presence of coronary angioplasty implant and graft; Z90.79 Acquired absence of other genital organ(s); Z80.8 Family history of malignant neoplasm of other organs or systems; Z86.718 Personal history of other venous thrombosis and embolism; Z95.0 Presence of cardiac pacemaker; Z63.4 Disappearance and death of family member; Z82.49 Family history of ischemic heart disease and other diseases of the circulatory system; Z79.899 Other long term (current) drug therapy
CPT/HCPCS: 36415; 36430; 71045; 74178; 74420; 76000; 76770; 78707; 80048; 80053; 80305; 81001; 82570; 82728; 82948; 83540; 83550; 83735; 83880; 83930; 83935; 84133; 84145; 84156; 84300; 85025; 85027; 85610; 85730; 86885; 86900; 86901; 86920; 87081; 87088; 87207; 93005; 96374; 96375; 97161; 97530; 99285; A4314; A4333; A4338; A4346; A4355; A5200; A9562; C1758; C1769; G0378; J0690; J1100; J2003; J2250; J2270; J2405; J2704; J3010; J3490; J7030; J7040; P9016; P9045; Q9967

== ENCOUNTER 2024-11-13 09:38 | Outpatient (CLI) | payer MEDICARE ==
[~2024-11-13 09:38] MED LIST changes: +AMLO5TAB PO; +ASPI-1071 PO; +FERR324T3 PO; +RIVA15TA PO; -RIVA20TA PO
--- NOTE | 2024-11-13 10:14 | RADIOLOGY REPORT ---
EXAM: DI CHEST,TWO VIEWS HISTORY: DYSPNEA, PLEURAL EFFUSION COMPARISON: DI CHEST,TWO VIEWS on DOS: 01/23/24 TECHNIQUE: Frontal and lateral views of the chest were performed. FINDINGS: There is increased right basilar infiltrate and effusion opacifying the inferior half of the right he mithorax. There is a small left pleural effusion. No pneumothorax. The heart is enlarged. Postopera tive changes of TAVR and left chest pacemaker are re-identified. IMPRESSION: 1. Increased right basilar infiltrate and effusion opacifying the inferior half of the right hemithor ax. 2. Small left pleural effusion. 3. Cardiomegaly and postoperative changes of the heart.
== END 2024-11-13 23:59 | disposition home or self-care (01) ==
LOC: RAD 09:38
PROVIDERS: ATTEND Student in an Organized Health Care Education/Training Program
DX: J90 Pleural effusion, not elsewhere classified (principal); I50.22 Chronic systolic (congestive) heart failure; I48.0 Paroxysmal atrial fibrillation; R06.00 Dyspnea, unspecified; I51.7 Cardiomegaly; Z98.890 Other specified postprocedural states
CPT/HCPCS: 71046

== ENCOUNTER 2024-12-02 08:27 | Day surgery (SDC) | payer MEDICARE ==
[~2024-12-02] VITALS: Ht 180.3 cm; Wt 94.6 kg
[2024-12-02] VITALS (11 sets, daily range): BP systolic 81–102; BP diastolic 50–64; PULSE 69–79; RESP 16–17; TEMP 98.5; O2SAT 88–95
--- NOTE | 2024-12-02 08:58 | ELECTROCARDIOGRAPH REPORT ---
[facility] Test Date: 2024-12-02 Test Time: 08:56:43 Pat Name: FABIAN TINAJERO Department: [facility] Patient ID: [facility]-[id number] Room: Gender: M [employer]: MARY : 1945 Requested By: PAM FREGOSO Order Number: [id number] Reading MD: Dr. ILYA Fregoso Measurements Intervals [place] Rate: 75 P: 0 WI: 198 QRS: 117 QRSD: 215 T: 155 QT: 508 QTc: 568 Interpretive Statements V paced rhythm, underlying AFib No further analysis attempted due to paced rhythm Baseline wander in lead(s) V2 Electronically Signed On 12-02-2024 19:17:[address] ILYA Fregoso Please click the below link to view image of tracing.
[2024-12-02] MEDS ORDERED: LOVA20TA2 PO (09:14)
[2024-12-02] MEDS ORDERED: ZAR2.5T PO (09:14)
[2024-12-02] MEDS ORDERED: CARV6.253 PO (09:14)
[2024-12-02] MEDS ORDERED: FURO20TA4 PO (09:14)
[2024-12-02] MEDS ORDERED: AMIO200T76 PO (09:14)
[2024-12-02] MEDS ORDERED: APIX5TAB3 PO (09:15)
[2024-12-02] MEDS ORDERED: atropine 0.1mg/ml 10ml syringe IV ONE (09:20)
[2024-12-02] MEDS ORDERED: normal saline 1000ml 1,000 ML IV SCH (09:20)
[2024-12-02] MEDS ORDERED: amiodarone 150mg/dext, iso-os 100 ML IV ONE (09:20)
[2024-12-02] MEDS ORDERED: MIDAZolam 1mg/ml 10ml vial IV ONE (09:20)
[2024-12-02] MEDS ORDERED: morphine 10mg/ml inj. IV ONE (09:20)
[2024-12-02] MEDS ORDERED: amiodarone 50MG/ML inj IV ONE (09:51)
[2024-12-02] MEDS ORDERED: fentaNYL/PF 50MCG/1 ML 2ML syringe ONE (09:51)
[2024-12-02] MEDS ORDERED: midazolam 1 mg/ML 2ml injection ONE ×4 (09:51→10:31)
[2024-12-02] MEDS ORDERED: atropine 0.1mg/ml 10ml syringe ONE (09:52)
--- NOTE | 2024-12-02 13:50 | RADIOLOGY REPORT ---
DI CHEST,TWO VIEWS CLINICAL HISTORY: R/O FLUID IN LUNGS COMPARISON: DI CHEST,TWO VIEWS on DOS: 11/13/24, DI CHEST,SINGLE VIEW on DOS: 03/23/24, DI CHEST,SINGL E VIEW on DOS: 01/31/24, DI CHEST,TWO VIEWS on DOS: 01/23/24, DI CHEST,SINGLE VIEW on DOS: 12/16/23, DI CHEST,TWO VIEWS on DOS: 11/13/24 TECHNIQUE: Frontal and lateral views of the chest were performed. FINDINGS: There is increased right basilar infiltrate and effusion opacifying the inferior half of the right he mithorax. There is a small left pleural effusion. No pneumothorax. The heart is enlarged. Postopera tive changes of TAVR and left chest pacemaker are re-identified. IMPRESSION: Increased right basilar infiltrate and effusion opacifying the inferior half of the right hemithorax. Small left pleural effusion. Cardiomegaly and postoperative changes of the heart.
--- NOTE | 2024-12-03 02:34 | CARDIOLOGY REPORT ---
DATE OF SERVICE: 12/02/2024 DICTATING PHYSICIAN: ILYA Fregoso MD ELECTRICAL CARDIOVERSION MANAGER EMERGENCY: ILYA Fregoso MD INDICATION: A 78-year-old male with history of hypertension, hyperlipidemia, CAD, sick sinus syndrome status post PPM and atrial fibrillation and congestive heart failure and kidney failure. The patient has a TAVR done back on 01/10/2024 and he has a pacemaker implanted in 2016 and the patient has history of AFib since 1998, had a cardioversion in 1998, 2001, 2002, and ablation in 2018 and 2023. Lately, the patient has been noted to be in AFib. He was put on amiodarone anticoagulation. He wanted to proceed with a cardioversion. He came in for electrical cardioversion today. DESCRIPTION OF PROCEDURE: Anterior and posterior patches used. Using biphasic electrical energy 150 followed by 200 joules, he had 3 electrical shocks and he would initially convert and go back and then third one was given after IV amiodaronmg.e 200 mg Fourth one was tried after changing the position of the anterior and posterior patches. Despite that, his conversion did not stay. He reverted back to normal AFib. At this time, it was decided to accept the rhythm. IMPRESSION: A 78-year-old male with paroxysmal atrial fibrillation that was persistent, underwent electrical cardioversion, did not convert. It was decided to accept the AFib uncontrolled rate with carvedilol. Amiodarone was discontinued because of CKD and his age and increased bruising. His Eliquis was stopped 2.5 mg p.o. b.i.d. Option of further ablation was discussed. At this stage, because of the age and comorbidities, the patient prefers to continue to proceed with the conservative approach. His labs from 12/02/2023 indicated that his BUN is 80, creatinine is 2.83, and the patient is trying to get his Nephrology consultation through his PMD. He did have a right pleural effusion for which he was referred to [facility] for possible evaluation for thoracentesis. Another chest x-ray will be repeated today. ILYA Fregoso MD TID: [id number] RECEIPT: [id number] MARY/SEVEN/SEYMOUR cc: Diana Roberson
== END 2024-12-02 14:20 | disposition home or self-care (01) ==
LOC: SSTAY O 08:27
PROVIDERS: ATTEND Internal Medicine Cardiovascular Disease
DX: I48.0 Paroxysmal atrial fibrillation (principal); I48.92 Unspecified atrial flutter; J90 Pleural effusion, not elsewhere classified; I11.0 Hypertensive heart disease with heart failure; I50.22 Chronic systolic (congestive) heart failure; I25.10 Atherosclerotic heart disease of native coronary artery without angina pectoris; E78.5 Hyperlipidemia, unspecified; G47.30 Sleep apnea, unspecified; Z79.01 Long term (current) use of anticoagulants; Z79.02 Long term (current) use of antithrombotics/antiplatelets; Z79.899 Other long term (current) drug therapy; Z95.0 Presence of cardiac pacemaker; Z95.5 Presence of coronary angioplasty implant and graft; Z98.890 Other specified postprocedural states
CPT/HCPCS: 71046; 92960; 93005; 99152; A4615; J0282; J2250; J3010; J7030; Z7610; 99153; J0461